=== PATIENT | male | born 1970 | race Caucasian/White ===

== ENCOUNTER → 2017-11-25 | Outpatient (CLI) | payer MEDICARE, OTHER ==
[~2017-11-25] MED LIST: ALBU90OI61 INH; AMIT25 PO; AMITRIPTYLINE; CELE200 PO; CEPH500 PO; CYCL10; CYCL10 PO; DULO30; DULO30 PO; DULO60 PO; GABA300 PO; GABA600 PO; GENT.3OPSA OS; HYDACE10B PO; HYDACE5 PO; HYDACE5325 PO; INDO50 PO; Keflex500 MG PO; MELO7.5 PO; METPRE4DP PO; NAPR500 PO; NAPR550 PO; OMEP40CA12 PO; OXYACE5T PO; PROC10 PO; PROCODE120 PO; PROM25 PO; Prednisone20 MG PO; QUET100; RXCLIN PO; RXCYCL10 PO; RXHYDACE PO; RXNAPNA550 PO; Silvadene20 GM TOP; Zithromax250 MG PO; [UNRECOGNIZED DRUG - REMARK]
== END ==
LOC: LAB SHORT 11:49 → LAB SRC 11:49
DX: Z51.81 Encounter for therapeutic drug level monitoring (principal); Z79.899 Other long term (current) drug therapy
CPT/HCPCS: G0480